=== PATIENT | male | born 1980 | race African-American/Black ===

== ENCOUNTER → 2020-05-08 14:35 | Outpatient (CLI) | payer OTHER, SELFPAY ==
[2020-05-09 11:18] LABS: COVID19 Sendout Not Detected (Not Detect)
== END ==
PROVIDERS: Visit Provider Nurse Practitioner
DX: Z11.59 Encounter for screening for other viral diseases (principal)
CPT/HCPCS: 87635

== ENCOUNTER 2020-05-11 08:05 | Day surgery (SDC) | payer OTHER, SELFPAY ==
--- NOTE | 2020-05-11 | PATH_ITS ---
[facility] Accession Number: [id number] . 01 Material submitted: . PART A: colon - ASCENDING COLON BIOPSY PART B: colon - TRANSVERSE COLON BIOPSY PART C: colon - DESCENDING COLON BIOPSY . 01 Clinical history: . SDC . 02 Diagnosis: A-C. Ascending Colon, Transverse Colon, Descending Colon, Biopsies: Chronic colitis with moderate neutrophic activity. Please see comment. Negative for granulomas, dysplasia, and malignancy. [facility] 05/12/2020 1745 Local . 02 Comment: The morphologic appearance could be compatible with the provided clinical history of ulcerative colitis, if infection and medication-related mucosal injury are excluded. . . . 02 Electronically signed: . Alena Braxton MD, Pathologist NPI- [id number] . 01 Gross description: . Part A: ASCENDING COLON BIOPSY: Received in formalin are 4 fragment(s) of phillips, soft tissue measuring 0.1 x 0.1 x 0.1 cm to 0.3 x 0.2 x 0.2 cm submitted entirely in 1 cassette(s) Part B: TRANSVERSE COLON BIOPSY: Received in formalin are 4 fragment(s) of phillips, soft tissue measuring 0.1 x 0.1 x 0.1 cm to 0.3 x 0.2 x 0.2 cm submitted entirely in 1 cassette(s) Part C: DESCENDING COLON BIOPSY: Received in formalin are multiple fragment(s) of phillips, soft tissue measuring 0.1 x 0.1 x 0.1 cm to 0.3 x 0.2 x 0.2 cm submitted entirely in 1 cassette(s) /YOLANDA 05/12/2020 0132 Local . 02 Pathologist provided ICD-10: K51.00 . 02 CPT . 906872, 423359, [id number] Performed at: 01 [facility] [address] [place] [address], [place], [place] [id number] MD Patrick Silver MD Phone: [phone] Performed at: [facility] [address] [place], [place] [id number] MD Alena Braxton MD Phone: [phone]
[2020-05-11 08:33] VITALS: BP 134/81; PULSE 57; RESP 14; TEMP 36.6; O2SAT 98; BMI 27.2
[2020-05-11] MEDS: LACTATED RINGERS 1,000 ML 42 ML IV (08:41)
--- NOTE | 2020-05-11 08:55 | PM.HP.1 ---
History of Present Illness History of Present Illness Date Patient Seen: 05/11/20 Time Patient Seen: 08:55 Chief complaint: SDC Narrative: Ulcerative pancolitis and family history of colon cancer in his father Patient History Medical History (Updated 05/11/20 @ 08:31 by Alena Moise RN) Family history of colon cancer in father (Acute) Ulcerative colitis (Acute) Surgical History (Updated 05/11/20 @ 08:31 by Alena Moise RN) History of ankle surgery (Acute) Family & Social History Social History: household members spouse,children Tobacco & Substance use: Smoking Status Never smoker alcohol intake current alcohol intake frequency a few times a week Substance Use Type does not use Meds Home Medications and Allergies Home Medications Medication Instructions Recorded Confirmed Type hydrochlorothiazide 25 mg PO DAILY 05/11/20 05/11/20 History mesalamine 2.4 g PO DAILY 05/11/20 05/11/20 History Allergies Allergy/AdvReac Type Severity Reaction Status Date / Time No Known Drug Allergies Allergy Verified 05/11/20 08:32 Exam Vital Signs (past 8 hours): - 05/11/20 08:33 Temperature 97.9 F Pulse Rate 57 L Respiratory Rate 14 Blood Pressure 134/81 Pulse Oximetry 98 Oxygen Delivery Method Room Air Narrative Exam Narrative: Oropharynx free of lesions Chest clear to auscultation percussion Cardiac exam reveals no S3 or murmur Assessment & Plan Assessment & Plan narrative: History of ulcerative colitis or least pancolitis need to assess disease activity Family history of colon cancer in his father Plan for colonoscopy. Risks, benefits, alternatives have been explained. Further recommendations will follow-up results of the study. He has been maintained on mesalamine 2.4 g daily. Further instructions to follow up.
--- NOTE | 2020-05-11 08:58 | PM.OP.ENDO ---
Operative Date/Time/Diagnoses Date of procedure: 05/11/20 Pre-op diagnosis: See indication and findings Procedure & Clinicians Study performed: Colonoscopy Indications: History of ulcerative colitis and family history of colon cancer in his father Surgeon: Mady Payne Procedure Notes Procedure in detail: After informed consent was obtained the patient was placed in left lateral decubitus position. The video colonoscope was introduced the rectum slowly advanced to cecum. Preparation was good. On withdrawal, mucosa was carefully examined. The scope was removed. The patient tolerated procedure well. Blood loss none Complications none Sedation Total sedation time 20 minutes Versed 7 mg fentanyl 200 mg IV titration Findings 1. Possibility of very mild erythema in the terminal ileum consistent with backwash ileitis. This is only present of 1st 1 cm or so. 2. Effaced and wide open IC valve 3. Ulcerative pancolitis the with relative rectal sparing. Two biopsies were taken every 10 cm and placed in right transverse and left bottles. The colitis was patchy but in general moderate in caliber. 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 He should for start by having follow-up tele health visit with Dr. Stewart who can then directed him to gastroenterology in the to help sort out which medications would be acceptable.
[2020-05-11] MEDS: MIDAZOLAM 5 MG/5 ML VIAL IV (09:00)
[2020-05-11] MEDS: fentaNYL 250 MCG/5 ML INJ IV (09:00)
[2020-05-11 09:24] VITALS: BP 119/79; PULSE 70; RESP 12; TEMP 36.6; O2SAT 98
[2020-05-11 09:29] VITALS: BP 117/76; PULSE 70; RESP 12; TEMP 36.6; O2SAT 100
[2020-05-11 09:34] VITALS: BP 124/75; PULSE 89; RESP 14; TEMP 36.7; O2SAT 95
[2020-05-11 09:40] VITALS: BP 127/88; PULSE 67; RESP 13; TEMP 36.6; O2SAT 95
== END 2020-05-11 09:52 | disposition home or self-care (01) ==
PROVIDERS: Referring Provider Internal Medicine Gastroenterology; Visit Provider Internal Medicine Gastroenterology
PROC: 0DJD8ZZ Inspection of Lower Intestinal Tract, Via Natural or Artificial Opening Endoscopic (ICD-10-PCS; CPT 45378; principal; 2020-05-11 09:30)
DX: K51.00 Ulcerative (chronic) pancolitis without complications (principal); Z80.0 Family history of malignant neoplasm of digestive organs
CPT/HCPCS: 45380; J2250; J3010